=== PATIENT | male | born 1945 | race Caucasian/White ===

== ENCOUNTER 2021-10-26 12:50 | Observation (INO) | payer MEDICARE ==
[~2021-10-26] VITALS: Ht 175.3 cm; Wt 70.0 kg
[~2021-10-26 12:50] MED LIST: B6; FOLIC ACID1 MG PO; PANTOPRAZOLE SO40 M1 PO; PRAVASTATIN SOD20 MG PO
--- NOTE | 2021-10-26 13:15 | NUR ---
PT ARRIVED VIA EMS, ETT IN PLACE. BBS=. CXR ORDERED FOR PLACEMENT CONFIRMATION. ABG OBTAINED. PT PLACED ON VENTILATOR. SHIP PILOT TO MONITOR.
[2021-10-26 13:35] LABS: URINE BLOOD DIPSTICK LARGE (NEGATIVE); URINE COLOR YELLOW; URINE GLUCOSE - DIPSTICK NEGATIVE (NEGATIVE); URINE KETONE NEGATIVE (NEGATIVE); URINE LEUK ESTERASE NEGATIVE (NEGATIVE); URINE PROTEIN - DIPSTICK 100 mg/dL (NEG-TRACE); URINE SPECIFIC GRAVITY >=1.030; URINE UROBILINOGEN - DIPSTICK 0.2 E.U./dL (0.2)
[2021-10-26 13:41] LABS: URINE BILIRUBIN - DIPSTICK SMALL (NEGATIVE); URINE NITRITE - DIPSTICK NEGATIVE (Negative)
[2021-10-26 13:44] LABS: URINE RBC 25-50 RBC/hpf (0-5)
--- NOTE | 2021-10-26 13:57 | NUR ---
1250 PATIENT ARRIVED VIA EMS INTUBATED WITH 7.5 ET TUBE. PATENT IO IN PLACE IN RLE. PATIENT GIVEN 2 ROUNDS OF ETOMIDATE AND SUCCINYLCHOLINE FOR SEDATION PRIOR TO INTUBATION IN THE FIELD BEFORE ARRIVING. 1300 DIPRIVAN STARTED AT 10 IN IO RLE. NORMAL SALINE 1000 ML (1ST LITER) STARTED A BOLUS IN IO RLE PRESSURIZED. 1305 LEWIS 16g INSERTED WITH URINE RETURN BY TARIQ. URINE DARK YELLOW/CHUCKY, CONCENTRATED. 1317 DIPRIVAN INCREASED TO 20. 147/62, HR 110, SAO2 94%. 1ST LITER OF NS COMPLETE. 1323 DIPRIVAN INCREASED TO 40. 167/79, HR 108, 95% ET, 2ND LITER NORMAL SALINE STARTED IN IO RLE, PRESSURIZED. 1325 CENTRAL LINE, TRIPLE LUMEN, COMPLETED RIGHT SIDE. 3RD LITER OF NORMAL SALINE STARTED AT 999 ML/HOUR ON PUMP. 1328 DIPRIVAN INCREASED TO 60. 182/70, HR 105, 95% ET. 1340 EKG COMPLETED. 1343 153/61, HR 100 1348 2ND LITER NORMAL SALINE COMPLETED. DIPRIVAN CHANGED TO CENTRAL LINE. IO FLUSHED AND PATENT.
[2021-10-26 14:01] LABS: HEMATOCRIT 41.8 % (39.0-50.0); HEMOGLOBIN 14.4 g/dl (14.0-18.0); IMMATURE GRANULOCYTES 0.5 % (0.0-5.0); MEAN CELL VOLUME 88.9 fL CALC (80.0-100.0); MEAN CORPUSCULAR HGB 30.6 pG CALC (26.0-32.0); MEAN CORPUSCULAR HGB CONC 34.4 g/dL CAL (32.0-36.0); PLATELET COUNT 237 thou/uL (130-400); RED CELL DISTRI WIDTH 13.2 % (11.5-15.5)
[2021-10-26 14:03] LABS: MANUAL DIFFERENTIAL YES
[2021-10-26 14:10] LABS: ALBUMIN 3.5 g/dL (3.2-5.0); BILIRUBIN, TOTAL 1.2 mg/dL (0.0-1.4); C-REACTIVE PROTEIN 8.8 mg/dL (0-0.9); CREATININE 2.4 mg/dL (0.7-1.3); MAGNESIUM 2.5 mg/dL (1.6-2.3); POTASSIUM 4.4 mmol/l (3.5-5.1); TOTAL PROTEIN 6.9 g/dL (6.3-8.2)
[2021-10-26 14:17] LABS: BAND 3 % (0-8)
[2021-10-26 14:41] LABS: TSH, 3RD GENERATION 1.74 uIU/mL (0.47 - 4.68)
--- NOTE | 2021-10-26 14:43 | NUR ---
1420 ZOSYN 3.375 STARTED IN CENTRAL LINE 1425 OG 18 F INSERTED. PLACEMENT CONFIRMED WITH ASPIRATION OF GASTRIC CONTENTS AND AUSCULTATION. OG CONNECTED TO LOW INTERMITTENT SUCTION. 1429 SOFT RESTRAINTS APPLIED TO UPPER EXTREMITIES. 1438 VANCOMYCIN 1 GM STARTED IN CENTRAL LINE. 116/59, HR 104. R 18, 100% ET 1438 REASSURANCE PROVIDED TO FAMILY AT BEDSIDE. MD AT BEDSIDE AND COMMUNICATING WITH PATIENT'S FAMILY ABOUT THEIR PLAN OF CARE. FAMILY STATES THEY ARE WAITING ON RESULTS OF CT SCAN TO DETERMINE HOW THEY WISH TO PROCEED FOR THE PATIENT.
--- NOTE | 2021-10-26 15:41 | NUR ---
Reassessment of patient completed. No distress noted.VSS
--- NOTE | 2021-10-26 16:15 | NUR ---
Reassessment of patient completed. No distress noted.
--- NOTE | 2021-10-26 16:48 | NUR ---
Reassessment of patient completed. No distress noted.VSS
--- NOTE | 2021-10-26 17:00 | NUR ---
TRANSPORTED PATIENT TO RADIOLOGY FOR CTA WITH RESPIRATORY.
--- NOTE | 2021-10-26 17:40 | NUR ---
RETURNED FROM CT WITH PATIENT. VSLizz.
--- NOTE | 2021-10-26 17:50 | NUR ---
Reassessment of patient completed. No distress noted.
--- NOTE | 2021-10-26 18:00 | NUR ---
Reassessment of patient completed. No distress noted.
--- NOTE | 2021-10-26 18:15 | NUR ---
Reassessment of patient completed. No distress noted.
--- NOTE | 2021-10-26 18:30 | NUR ---
4Reassessment of patient completed. No distress noted.
--- NOTE | 2021-10-26 18:46 | NUR ---
Reassessment of patient completed. No distress noted.
--- NOTE | 2021-10-26 19:00 | NUR ---
Reassessment of patient completed. No distress noted.-
--- NOTE | 2021-10-26 19:30 | NUR ---
Reassessment of patient completed. No distress noted.
--- NOTE | 2021-10-26 20:09 | NUR ---
Reassessment of patient completed. No distress noted.
--- NOTE | 2021-10-26 20:30 | NUR ---
Reassessment of patient completed. No distress noted.
--- NOTE | 2021-10-26 21:00 | NUR ---
Reassessment of patient completed. No distress noted.
--- NOTE | 2021-10-26 21:40 | NUR ---
Reassessment of patient completed. No distress noted.
--- NOTE | 2021-10-26 22:00 | NUR ---
CARE ASSUMED NO CHANGES FROM PREVIOUS CONTINUE TO AWAIT FAMILY ARRIVAL FROM [facility] FOR FINAL DECISION REGARDING PLAN OF CARE.
[2021-10-26 23:13] VITALS: BP 0/0
--- NOTE | 2021-10-26 23:13 | NUR ---
2235 - FAMILY PRESENT AT BEDSIDE REQUESTING TO HONOR FATHERS DNR AND EXTUABTE WITH COMFORT CARE ONLY. 2245 - MEDIACTED WITH ATIVAN IN PREPARATION FOR EXTUIBATION 2250 - PT EXTUBATED (OG TUBE REMOVED WELL) BY R.T. AND MOUTH CARE PROVIDED. 2300 - PT CONTINUES WITH INCREASING GARTH CARDIA AND POOR INSPIRATION 2313 - PT ASYSTOLE ON TELE NO RES[PIRATIONS NOTIFIED OF TIME OF
--- NOTE | 2021-10-27 00:51 | NUR ---
10/26/21 @ 6134 [employer] CALLED AND PT NOT MEDICALLY SUITABLE, AWAITING RETYURN CALL FROM [facility]. 0006 - EYE BACK DECLINES 0007 - [facility] NOTIFIED PER FAMILY REQUEST
--- NOTE | 2021-10-27 01:40 | NUR ---
PT BODY REMOVED FROM ER BY [facility].
== END 2021-10-26 23:13 | disposition expired ==
LOC: ED 12:50 → EDBD 13:08 → ED-I 21:00
PROVIDERS: Emergency Medicine; ADMIT Hospitalist; ATTEND Hospitalist
PROC: 05HM33Z Insertion of Infusion Device into Right Internal Jugular Vein, Percutaneous Approach (ICD-10-PCS; principal; 2021-10-26)
PROC: 5A1935Z Respiratory Ventilation, Less than 24 Consecutive Hours (ICD-10-PCS; 2021-10-26)
PROC: 0T9B70Z Drainage of Bladder with Drainage Device, Via Natural or Artificial Opening (ICD-10-PCS; 2021-10-26)
DX: I63.032 Cerebral infarction due to thrombosis of left carotid artery (principal); J10.00 Influenza due to other identified influenza virus with unspecified type of pneumonia; M62.82 Rhabdomyolysis; N19 Unspecified kidney failure; S41.101A Unspecified open wound of right upper arm, initial encounter; S31.819A Unspecified open wound of right buttock, initial encounter; X58.XXXA Exposure to other specified factors, initial encounter; Z51.5 Encounter for palliative care; Z20.822 Contact with and (suspected) exposure to COVID-19
CPT/HCPCS: J2060; Q9967